=== PATIENT | female | born 1985 | race American Indian/Alaskan Native ===

== ENCOUNTER 2021-04-08 14:28 | Emergency (ER) | payer MEDICARE ==
[2021-04-08 14:36] VITALS: BP 115/55
--- NOTE | 2021-04-08 16:54 | Event Note ---
ED Screening Note Date of service: 04/08/21 Time: 16:53 ED Screening Note: 36-year-old female presents to the ER today with complaints that she is concerned for "gas poisoning". Patient states that she recently found out that she had a gas leak in her apartment. She states that she has been seen in department since the end of March 2021. She states that she had a few visitors over April 06 and also her family members came over around the same time and mention to her that they smelled gas. Patient states that she did not notice that her home smelled like gas until her family members and friends mentioned it. She states that she had a gas company come over and they did confirm a gas leak. She states that she is now having memory loss, confusion, dizziness, dull headache and chest pain. She denies any coughing, shortness of breath, wheezing, nausea vomiting fever or chills. She does admit to tobacco use but she denies any underlying medical conditions. This initial assessment/diagnostic orders/clinical plan/treatment(s) is/are subject to change based on patients health status, clinical progression and re- assessment by fellow clinical providers in the ED. Further treatment and workup at subsequent clinical providers discretion. Patient/guardian urged not to elope from the ED as their condition may be serious if not clinically assessed and managed. Initial orders include: Labs including carboxyhemoglobin and a chest x-ray
[2021-04-08 17:10] LABS: Basophils # (Auto) 0.1 K/mm3 (0.0-0.1); Basophils % (Auto) 0.5 % (0.0-1.8); Eosinophils # (Auto) 0.2 K/mm3 (0.0-0.4); Eosinophils % (Auto) 1.5 % (0.0-4.3); Hematocrit 42.1 % (30.3-42.9); Hemoglobin 14.2 gm/dl (10.1-14.3); Lymphocytes # (Auto) 2.4 K/mm3 (1.2-5.4); Mean Corpuscular HGB Conc 34 % (30-34); Mean Corpuscular Volume 93 fl (79-97); Monocytes # (Auto) 0.9 K/mm3 (0.0-0.8); Monocytes % (Auto) 8.4 % (0.0-7.3); Platelet Count 204 K/mm3 (140-440); Red Blood Count 4.51 M/mm3 (3.65-5.03); Red Cell Distribution Width 14.1 % (13.2-15.2)
[2021-04-08 17:31] LABS: Alanine Aminotransferase 12 units/L (7-56); Albumin 4.4 g/dL (3.9-5); BUN/Creatinine Ratio 14; Blood Urea Nitrogen 11 mg/dL (7-17); Calcium 9.5 mg/dL (8.4-10.2); Hemolysis Index 17
--- NOTE | 2021-04-08 18:43 | XRay Report ---
CHEST 2 VIEWS INDICATION / CLINICAL INFORMATION: chest pain. COMPARISON: None available. FINDINGS: SUPPORT DEVICES: None. HEART / MEDIASTINUM: No significant abnormality. LUNGS / PLEURA: No significant pulmonary abnormality. No significant pleural effusion. No pneumothora x. ADDITIONAL FINDINGS: No significant additional findings. IMPRESSION: 1. No acute abnormality of the chest. Signer Name: Volodymyr Luna MD Signed: 04/08/2021 6:39 PM Workstation Name: [id number]
[2021-04-08] MEDS ORDERED: ACETAMINOPHEN 500 MG TAB PO ONE (19:03)
[2021-04-08] MEDS ORDERED: diphenhydrAMINE 25 MG CAP PO ONE (19:03)
[2021-04-08] MEDS ORDERED: METOCLOPRAMIDE 10 MG TAB PO ONE (19:03)
--- NOTE | 2021-04-08 19:14 | Emergency Department Report ---
ED General Adult HPI - General Chief complaint: Medical Clearance Stated complaint: GAS POISONING Time Seen by Provider: 04/08/21 19:09 Source: patient Mode of arrival: Ambulatory Limitations: No Limitations - History of Present Illness Initial comments: Pt is a 36-year-old female presents to the ER today with complaint that she is concerned for "gas poisoning". Patient states that she recently found out that she had a gas leak in her apartment ([place]). She states that she has been seen in department since the end of March 2021. She states that she had a few visitors over April 06 and also her family members came over around the same time and mentioned to her that they smelled gas. Patient states that she did not notice that her home smelled like gas until her family members and friends mentioned it. She states that she had the gas company come over and they did confirm a gas leak. She states that she is now having memory loss, confusion, dizziness, dull headache and chest pain. She denies any coughing, shortness of breath, wheezing, nausea /vomiting fever or chills. She does admit to tobacco use but she denies any underlying medical conditions. Symptoms are rated at 45/10 at this time. Symptoms are excerbated by movement and activity. Symptoms are relieved by nothing tried. Headache is located frontal dull intermittent sharpness. There is no photophobia or decreased vision. Pt denies other history. - Related Data Allergies Allergy/AdvReac Type Severity Reaction Status Date / Time No Known Allergies Allergy Unverified 04/08/21 14:31 ED Review of Systems ROS: Stated complaint: GAS POISONING Other details as noted in HPI Constitutional: malaise Eyes: denies: eye pain, eye discharge, vision change ENT: denies: ear pain, throat pain, hearing loss, epistaxis, congestion Respiratory: denies: cough, shortness of breath, wheezing Cardiovascular: chest pain (left anterior lateral radiating to left posterior upper shoulder ). denies: palpitations, dyspnea on exertion, orthopnea, syncope Endocrine: no symptoms reported Gastrointestinal: denies: abdominal pain, nausea, vomiting, diarrhea, melena Genitourinary: denies: urgency, dysuria, frequency, hematuria, discharge Musculoskeletal: other (left posterior shoulder pain ) Skin: denies: rash, lesions Neurological: headache, vertigo. denies: weakness, numbness, paresthesias, confusion Psychiatric: anxiety Hematological/Lymphatic: denies: easy bleeding, easy bruising ED Past Medical Hx - Past Medical History Previous Medical History?: No - Surgical History Past Surgical History?: No - Social History Smoking Status: Current Every Day Smoker Substance Use Type: None ED Physical Exam - General Limitations: No Limitations General appearance: alert, in no apparent distress - Head Head exam: Present: normocephalic, normal inspection - Eye Eye exam: Present: PERRL, EOMI. Absent: conjunctival injection, nystagmus Pupils: Present: normal accommodation - ENT ENT exam: Present: normal orophraynx, mucous membranes moist, normal external ear exam - Expanded ENT Exam Expanded Throat exam: Positive: normal inspection, other (uvula midline no exudate no lesions no erythema no stridor or wheezing ). Negative: tonsillar erythema, tonsillomegaly, tonsillar exudate - Neck Neck exam: Present: normal inspection, full ROM. Absent: tenderness, lymphad enopathy, thyromegaly - Respiratory Respiratory exam: Present: normal lung sounds bilaterally, chest wall tenderness (left anterior lateral chest wall tenderness to deep palpation, no crepitus, no step off no swelling ). Absent: respiratory distress, wheezes, stridor, prolonged expiratory - Cardiovascular Cardiovascular Exam: Present: regular rate, normal rhythm, normal heart sounds. Absent: systolic murmur, diastolic murmur, rubs, gallop, clicks, JVD, S3, S4 - GI/Abdominal GI/Abdominal exam: Present: soft. Absent: distended, tenderness, bruit, hernia - Rectal Rectal exam: Present: deferred - Extremities Exam Extremities exam: Present: normal inspection, full ROM, normal capillary refill. Absent: tenderness - Back Exam Back exam: Present: normal inspection, full ROM. Absent: CVA tenderness (R), CVA tenderness (L), rash noted - Neurological Exam Neurological exam: Present: alert, oriented X3, CN II-XII intact, normal gait, reflexes normal. Absent: motor sensory deficit - Expanded Neurological Exam Expanded Patient oriented to: Present: person, place, time Speech: Present: fluid speech Cranial nerves: EOM's Intact: Normal Motor strength exam: RUE: 5, LUE: 5, RLE: 5, LLE: 5 Best Eye Response ([place]): (4) open spontaneously Best Motor Response ([place]): (6) obeys commands Best Verbal Response (Gt): (5) oriented Gt Total: 15 - Psychiatric Psychiatric exam: Present: normal affect, normal mood - Skin Skin exam: Present: warm, dry, intact, normal color. 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 ED Medical Decision Making - Lab Data Result diagrams: 04/08/21 16:56 04/08/21 16:56 Temp Pulse Resp BP Pulse Ox 98.2 F 88 18 115/55 99 04/08/21 14:33 04/08/21 14:33 04/08/21 14:33 04/08/21 14:33 04/08/21 14:33 Labs 04/08/21 04/08/21 04/08/21 16:56 16:56 16:56 WBC 11.0 RBC 4.51 Hgb 14.2 Hct 42.1 MCV 93 MCH 32 MCHC 34 RDW 14.1 Plt Count 204 Lymph % (Auto) 22.0 [place] % (Auto) 8.4 H Eos % (Auto) 1.5 Baso % (Auto) 0.5 Lymph # (Auto) 2.4 [place] # (Auto) 0.9 H Eos # (Auto) 0.2 Baso # (Auto) 0.1 Seg Neutrophils % 67.6 Seg Neutrophils # 7.4 Sodium 135 L Potassium 4.4 Chloride 101.0 Carbon Dioxide 21 L Anion Gap 17 BUN 11 Creatinine 0.8 Estimated GFR > 60 BUN/Creatinine Ratio 14 Glucose 75 Calcium 9.5 Total Bilirubin 0.20 AST 15 ALT 12 Alkaline Phosphatase 77 Total Protein 8.1 Albumin 4.4 Albumin/Globulin Ratio 1.2 HCG, Qual Negative - Radiology Data Radiology results: report reviewed, image reviewed INDICATION / CLINICAL INFORMATION: chest pain. COMPARISON: None available. FINDINGS: SUPPORT DEVICES: None. HEART / MEDIASTINUM: No significant abnormality. LUNGS / PLEURA: No significant pulmonary abnormality. No significant pleural effusion. No pneumothorax. ADDITIONAL FINDINGS: No significant additional findings. IMPRESSION: 1. No acute abnormality of the chest. Signer Name: Volodymyr Luna MD Signed: 04/08/2021 6:39 PM Workstation Name: [id number] Transcribed By: [place] Dictated By: Volodymyr Luna MD Electronically Authenticated By: Volodymyr Luna MD Signed Date/Time: 04/08/211838 DD/ 36 TD/TT: - Medical Decision Making Patient now advises that she cannot wait for, hyper carboxyhemoglobin or EKG as she has to leave. However physical exam is normal, lung sounds are clear throughout patient is alert oriented x3 ambulatory with steady gait patient has no acute distress. Patient will follow with primary care doctor in 2 to 3 days. Patient will return to emergency department should symptoms worsen. Critical care attestation.: If time is entered above; I have spent that time in minutes in the direct care of this critically ill patient, excluding procedure time. ED Disposition Clinical Impression: Exposure to natural gas Disposition: DC-01 TO HOME OR SELFCARE Is pt being admited?: No Does the pt Need Aspirin: No Condition: Stable Instructions: Carbon Monoxide Poisoning, [id number], Carboxyhemoglobin Test Additional Instructions: Take [id number] Tylenol as discussed and agreed as needed for headache, return to emergency department should symptoms arrival or worsen. Follow-up with your primary care doctor in 2 to 3 days. Referrals: HIRAM DE LA PAZ MD [Staff Physician] - 3-5 Days Forms: Work/School Release Form(ED) Time of Disposition: 20:34
== END 2021-04-08 20:45 | disposition home or self-care (01) ==
LOC: ED 14:28
DX: T59.91XA Toxic effect of unspecified gases, fumes and vapors, accidental (unintentional), initial encounter (principal); F17.200 Nicotine dependence, unspecified, uncomplicated; Y35 Legal intervention; Y93.89 Activity, other specified; Y92.039 Unspecified place in apartment as the place of occurrence of the external cause; Y99.8 Other external cause status
CPT/HCPCS: 71046; 80053; 84703; 85025; 99284

== ENCOUNTER 2021-05-28 16:12 | Emergency (ER) | payer MEDICARE ==
[2021-05-28 16:29] VITALS: BP 111/52
--- NOTE | 2021-05-28 17:17 | Emergency Department Report ---
ED General Adult HPI - General Chief complaint: Vaginal Bleeding Stated complaint: POSS MISCARRIAGE Time Seen by Provider: 05/28/21 16:37 Source: patient Mode of arrival: Ambulatory Limitations: No Limitations - History of Present Illness Initial comments: 36-year-old -[place] female patient presents with complaints of vaginal bleeding. Patient states that she took a test today and it was positive. Her last menstrual cycle was 04/19/2021. She admits to mild lower abdominal cramping that she reports feels like her normal menstrual cramps. Patient denies any dysuria/hematuria/urinary frequency, nausea/vomiting, stool changes, or fever/chills/sweats. She rates her pain as a 3/10 in severity. She has not taken any OTC medications for her symptoms. 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 Severity scale (0 -10): 4 - Related Data Previous Rx's Medication Instructions Recorded Last Taken Type Amoxicillin/Potassium Clav 1 each PO BID 5 Days #10 tablet 05/28/21 Unknown Rx [Augmentin 875-125 Tablet] Allergies Allergy/AdvReac Type Severity Reaction Status Date / Time No Known Allergies Allergy Unverified 04/08/21 14:31 ED Review of Systems ROS: Stated complaint: POSS MISCARRIAGE Other details as noted in HPI Constitutional: denies: chills, fever, malaise Gastrointestinal: as per HPI. denies: abdominal pain Genitourinary: denies: urgency, dysuria, frequency, hematuria, discharge Neurological: denies: headache ED Past Medical Hx - Social History Smoking Status: Current Every Day Smoker Substance Use Type: None - Medications Home Medications: Home Medications Medication Instructions Recorded Confirmed Last Taken Type Amoxicillin/Potassium Clav 1 each PO BID 5 Days #10 tablet 05/28/21 Unknown Rx [Augmentin 875-125 Tablet] ED Physical Exam - General Limitations: No Limitations General appearance: alert, in no apparent distress - Head Head exam: Present: atraumatic, normocephalic - Respiratory Respiratory exam: Absent: respiratory distress - Cardiovascular Cardiovascular Exam: Present: regular rate - GI/Abdominal GI/Abdominal exam: Present: soft, normal bowel sounds. Absent: distended, tenderness, guarding, rebound, rigid - Neurological Exam Neurological exam: Present: alert, oriented X3 - Psychiatric Psychiatric exam: Present: normal affect, normal mood - Skin Skin exam: Present: warm, dry, intact, normal color. Absent: rash ED Course Vital Signs 05/28/21 16:28 Temperature 98.1 F Pulse Rate 79 Respiratory 16 Rate Blood Pressure 111/52 [Right] O2 Sat by Pulse 99 Oximetry ED Medical Decision Making - Lab Data Result diagrams: 05/28/21 18:26 - Radiology Data Radiology results: report reviewed ULTRASOUND OBSTETRIC INDICATION / CLINICAL INFORMATION: bleeding in . Serum hCG level = 131.0 Clinical Gestational Age (GA) in weeks, days: Not calculated. LMP = 04/15/21 TECHNIQUE: Transabdominal and Transvaginal. COMPARISON: None available. FINDINGS: GESTATIONAL SAC: No intrauterine gestational sac. YOLK SAC: None visualized. EMBRYO/FETUS: None visualized. ADNEXA: No significant abnormality. FREE FLUID: None. ADDITIONAL FINDINGS: None. IMPRESSION: 1. No intrauterine . - Medical Decision Making 36-year-old -[place] female patient presents with complaints of vaginal bleeding. Patient states that she took a test today and it was positive. Her last menstrual cycle was 04/19/2021. She admits to mild lower abdominal cramping that she reports feels like her normal menstrual cramps. Patient denies any dysuria/hematuria/urinary frequency, nausea/vomiting, stool changes, or fever/chills/sweats. She rates her pain as a 3/10 in severity. She has not taken any OTC medications for her symptoms. 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 No abdominal tenderness to palpation noted on exam. Patient declines CBC and ABO/Rh testing. Discussed importance of ABO/Rh and possible risk associated with being Rh- with a Rh+ fetus-patient states understanding and continues to decline testing. Beta-hCG is low at 131. Ultrasound is negative for any IUP or ectopic at this time. Early versus miscarriage. UA shows pyuria. Discussed findings in detail with patient. Augmentin given for UTI. Patient is to return to the ED in 3 days for repeat beta hCG level or follow-up with her WATER SERVICE SUPERVISOR. She is otherwise well-appearing, her vitals are normal, she is stable for discharge home. Strict return precautions discussed in detail patient verbalized understanding. Critical care attestation.: If time is entered above; I have spent that time in minutes in the direct care of this critically ill patient, excluding procedure time. ED Disposition Clinical Impression: Vaginal bleeding in , Threatened , UTI (urinary tract infection) Disposition: HOME / SELF CARE / HOMELESS Is pt being admited?: No Condition: Stable Instructions: and Urinary Tract Infection, Threatened Miscarriage, [id number] Prescriptions: Amoxicillin/Potassium Clav [Augmentin 875-125 Tablet] 1 each PO BID 5 Days #10 tablet Referrals: [facility] [Provider Group] - 2-3 Days (Recheck hormone and follow up )
[2021-05-28 18:51] LABS: Bilirubin,Urine NEG (Negative); Blood,Urine LG (Negative); Color,Urine Yellow (Yellow); Mucus,Urine FEW /HPF; Urobilinogen,Urine < 2.0 mg/dL (<2.0)
[2021-05-28 21:59] LABS: Blood Urea Nitrogen 10 mg/dL (7-17); Calcium 9.8 mg/dL (8.4-10.2); Hemolysis Index 1
[2021-05-28 22:01] LABS: BUN/Creatinine Ratio 14
--- NOTE | 2021-05-28 22:02 | Ultrasound Report ---
ULTRASOUND OBSTETRIC INDICATION / CLINICAL INFORMATION: bleeding in . Serum hCG level = 131.0 Clinical Gestational Age (GA) in weeks, days: Not calculated. LMP = 04/15/21 TECHNIQUE: Transabdominal and Transvaginal. COMPARISON: None available. FINDINGS: GESTATIONAL SAC: No intrauterine gestational sac. YOLK SAC: None visualized. EMBRYO/FETUS: None visualized. ADNEXA: No significant abnormality. FREE FLUID: None. ADDITIONAL FINDINGS: None. IMPRESSION: 1. No intrauterine . Signer Name: Keren Patel MD Signed: 05/28/2021 9:57 PM Workstation Name: [id number]
== END 2021-05-28 22:00 | disposition home or self-care (01) ==
LOC: ED 16:12
DX: O20.9 Hemorrhage in early pregnancy, unspecified (principal); O20.0 Threatened abortion; O23.91 Unspecified genitourinary tract infection in pregnancy, first trimester; Z3A.01 Less than 8 weeks gestation of pregnancy; F17.200 Nicotine dependence, unspecified, uncomplicated
CPT/HCPCS: 36415; 76801; 76817; 80048; 81001; 84702; 87086; 99283

== ENCOUNTER 2021-07-18 06:04 | Emergency (ER) | payer MEDICARE ==
[2021-07-18 08:39] LABS: Basophils # (Auto) 0.1 K/mm3 (0.0-0.1); Eosinophils # (Auto) 0.1 K/mm3 (0.0-0.4); Eosinophils % (Auto) 0.5 % (0.0-4.3); Hemoglobin 14.3 gm/dl (10.1-14.3); Lymphocytes # (Auto) 2.1 K/mm3 (1.2-5.4); Lymphocytes % (Auto) 16.1 % (13.4-35.0); Mean Corpuscular HGB Conc 33 % (30-34); Mean Corpuscular Volume 90 fl (79-97); Monocytes # (Auto) 0.7 K/mm3 (0.0-0.8); Monocytes % (Auto) 5.4 % (0.0-7.3); Platelet Count 320 K/mm3 (140-440); Red Blood Count 4.77 M/mm3 (3.65-5.03); Red Cell Distribution Width 12.8 % (13.2-15.2)
[2021-07-18 08:56] LABS: Amphetamine Screen,Urine Negative; Benzodiazepines Screen,Urine Negative; Cannabinoid Screen,Urine Negative; Cocaine Screen,Urine Negative; Methadone Screen,Urine Negative; Opiate Screen,Urine Negative
[2021-07-18 08:57] LABS: Bacteria,Urine 1+ /HPF (Negative); Bilirubin,Urine NEG (Negative); Blood,Urine NEG (Negative); Color,Urine Amber (Yellow); Mucus,Urine 2+ /HPF; Urobilinogen,Urine < 2.0 mg/dL (<2.0)
[2021-07-18 09:01] LABS: BUN/Creatinine Ratio 10; Blood Urea Nitrogen 8 mg/dL (7-17); Calcium 9.7 mg/dL (8.4-10.2); Hemolysis Index 4
--- NOTE | 2021-07-18 09:42 | Emergency Department Report ---
ED Psych HPI - General Chief Complaint: Psych Stated Complaint: MH Time Seen by Provider: 07/18/21 08:11 Source: patient Mode of arrival: Ambulatory Limitations: No Limitations - History of Present Illness Initial Comments: 36-year-old female the past medical history of schizophrenia presents to the hospital complaining of worsening auditory visual hallucinations. Patient accuses her family members of practicing witchcraft. She states every time thi ngs are going right in her life they ruin it with witchcraft and sorcery. Patient is compliant with her daily p.o. Invega dose with last dose yesterday. She states she has been having worsening hallucinations for the last 4 to 5 days was interfere with her ability to run her Responsys. Patient does not endorse suicidal or homicidal ideation at this time. No physical complaints reported. - Related Data Allergies Allergy/AdvReac Type Severity Reaction Status Date / Time No Known Allergies Allergy Verified 07/18/21 09:44 ED Review of Systems ROS: Stated complaint: MH Other details as noted in HPI Comment: All other systems reviewed and negative ED Past Medical Hx - Past Medical History Previous Medical History?: Yes Hx Psychiatric Treatment: Yes (schizoeffective) - Surgical History Past Surgical History?: No - Social History Smoking Status: Never Smoker Substance Use Type: None ED Physical Exam - General Limitations: No Limitations - Other Other exam information: General: No acute distress Head: Atraumatic Eyes: normal appearance ENT: Moist mucous membranes Neck: Normal appearance, no midline tenderness Chest: Clear to auscultation bilaterally CV: Regular rate and rhythm Abdomen: Soft, normal bowel sounds, nontender, nondistended, no rebound or guarding Back: Normal inspection Extremity: Normal inspection, full range of motion Neuro: Alert O x 3, no facial asymmetry, speech clear, no gross motor sensory deficit Psych: Appropriate behavior Skin: No rash ED Course Vital Signs 07/18/21 07/18/21 07/18/21 07:30 08:07 08:13 Temperature 98 F 98 F Pulse Rate 106 H 89 Respiratory 18 18 Rate Blood Pressure 128/88 124/64 [Right] O2 Sat by Pulse 99 98 98 Oximetry ED Medical Decision Making - Lab Data Result diagrams: 07/18/21 08:18 07/18/21 08:18 Lab Results 07/18/21 07/18/21 07/18/21 Range/Units 08:13 08:13 08:18 WBC 13.0 H (4.5-11.0) K/mm3 RBC 4.77 (3.65-5.03) M/mm3 Hgb 14.3 (10.1-14.3) gm/dl Hct 43.0 H (30.3-42.9) % MCV 90 (79-97) fl MCH 30 (28-32) pg MCHC 33 (30-34) % RDW 12.8 L (13.2-15.2) % Plt Count 320 (140-440) K/mm3 Lymph % (Auto) 16.1 (13.4-35.0) % [place] % (Auto) 5.4 (0.0-7.3) % Eos % (Auto) 0.5 (0.0-4.3) % Baso % (Auto) 1.0 (0.0-1.8) % Lymph # (Auto) 2.1 (1.2-5.4) K/mm3 [place] # (Auto) 0.7 (0.0-0.8) K/mm3 Eos # (Auto) 0.1 (0.0-0.4) K/mm3 Baso # (Auto) 0.1 (0.0-0.1) K/mm3 Seg Neutrophils % 77.0 H (40.0-70.0) % Seg Neutrophils # 10.0 H (1.8-7.7) K/mm3 Sodium (137-145) mmol/L Potassium (3.6-5.0) mmol/L Chloride (98-107) mmol/L Carbon Dioxide (22-30) mmol/L Anion Gap mmol/L BUN (7-17) mg/dL Creatinine (0.6-1.2) mg/dL Estimated GFR ml/min BUN/Creatinine Ratio % Glucose (65-100) mg/dL Calcium (8.4-10.2) mg/dL HCG, Qual (Negative) Urine Color [place] (Yellow) Urine Turbidity Cloudy (Clear) Urine pH 5.0 (5.0-7.0) Ur Specific [place] 1.026 (1.003-1.030) Urine Protein 100 mg/dl (Negative) mg/dL Urine Glucose (UA) Neg (Negative) mg/dL Urine Ketones Neg (Negative) mg/dL Urine Blood Neg (Negative) Urine Nitrite Neg (Negative) Urine Bilirubin Neg (Negative) Urine Urobilinogen < 2.0 (<2.0) mg/dL Ur Leukocyte Esterase Lg (Negative) Urine WBC (Auto) 55.0 H (0.0-6.0) /HPF Urine RBC (Auto) 10.0 (0.0-6.0) /HPF U Epithel Cells (Auto) 79.0 H (0-13.0) /HPF Urine Bacteria (Auto) 1+ (Negative) /HPF Urine Mucus 2+ /HPF Salicylates (2.8-20.0) mg/dL Urine Opiates Screen Negative Urine Methadone Screen Negative Acetaminophen (10.0-30.0) ug/mL Ur Barbiturates Screen Negative Ur Phencyclidine Scrn Negative Ur Amphetamines Screen Negative U Benzodiazepines Scrn Negative Urine Cocaine Screen Negative U Marijuana (THC) Screen Negative Drugs of Abuse Note Disclamer Plasma/Serum Alcohol (0-0.07) % Coronavirus (PCR) (Negative) 07/18/21 07/18/21 07/18/21 Range/Units 08:18 08:18 08:18 WBC (4.5-11.0) K/mm3 RBC (3.65-5.03) M/mm3 Hgb (10.1-14.3) gm/dl Hct (30.3-42.9) % MCV (79-97) fl MCH (28-32) pg MCHC (30-34) % RDW (13.2-15.2) % Plt Count (140-440) K/mm3 Lymph % (Auto) (13.4-35.0) % [place] % (Auto) (0.0-7.3) % Eos % (Auto) (0.0-4.3) % Baso % (Auto) (0.0-1.8) % Lymph # (Auto) (1.2-5.4) K/mm3 [place] # (Auto) (0.0-0.8) K/mm3 Eos # (Auto) (0.0-0.4) K/mm3 Baso # (Auto) (0.0-0.1) K/mm3 Seg Neutrophils % (40.0-70.0) % Seg Neutrophils # (1.8-7.7) K/mm3 Sodium 137 (137-145) mmol/L Potassium 4.1 (3.6-5.0) mmol/L Chloride 102.1 (98-107) mmol/L Carbon Dioxide 18 L (22-30) mmol/L Anion Gap 21 mmol/L BUN 8 (7-17) mg/dL Creatinine 0.8 (0.6-1.2) mg/dL Estimated GFR > 60 ml/min BUN/Creatinine Ratio 10 % Glucose 130 H (65-100) mg/dL Calcium 9.7 (8.4-10.2) mg/dL HCG, Qual (Negative) Urine Color (Yellow) Urine Turbidity (Clear) Urine pH (5.0-7.0) Ur Specific [place] (1.003-1.030) Urine Protein (Negative) mg/dL Urine Glucose (UA) (Negative) mg/dL Urine Ketones (Negative) mg/dL Urine Blood (Negative) Urine Nitrite (Negative) Urine Bilirubin (Negative) Urine Urobilinogen (<2.0) mg/dL Ur Leukocyte Esterase (Negative) Urine WBC (Auto) (0.0-6.0) /HPF Urine RBC (Auto) (0.0-6.0) /HPF U Epithel Cells (Auto) (0-13.0) /HPF Urine Bacteria (Auto) (Negative) /HPF Urine Mucus /HPF Salicylates < 0.3 L (2.8-20.0) mg/dL Urine Opiates Screen Urine Methadone Screen Acetaminophen 5.0 L (10.0-30.0) ug/mL Ur Barbiturates Screen Ur Phencyclidine Scrn Ur Amphetamines Screen U Benzodiazepines Scrn Urine Cocaine Screen U Marijuana (THC) Screen Drugs of Abuse Note Plasma/Serum Alcohol (0-0.07) % Coronavirus (PCR) (Negative) 07/18/21 07/18/21 07/18/21 Range/Units 08:18 08:18 09:11 WBC (4.5-11.0) K/mm3 RBC (3.65-5.03) M/mm3 Hgb (10.1-14.3) gm/dl Hct (30.3-42.9) % MCV (79-97) fl MCH (28-32) pg MCHC (30-34) % RDW (13.2-15.2) % Plt Count (140-440) K/mm3 Lymph % (Auto) (13.4-35.0) % [place] % (Auto) (0.0-7.3) % Eos % (Auto) (0.0-4.3) % Baso % (Auto) (0.0-1.8) % Lymph # (Auto) (1.2-5.4) K/mm3 [place] # (Auto) (0.0-0.8) K/mm3 Eos # (Auto) (0.0-0.4) K/mm3 Baso # (Auto) (0.0-0.1) K/mm3 Seg Neutrophils % (40.0-70.0) % Seg Neutrophils # (1.8-7.7) K/mm3 Sodium (137-145) mmol/L Potassium (3.6-5.0) mmol/L Chloride (98-107) mmol/L Carbon Dioxide (22-30) mmol/L Anion Gap mmol/L BUN (7-17) mg/dL Creatinine (0.6-1.2) mg/dL Estimated GFR ml/min BUN/Creatinine Ratio % Glucose (65-100) mg/dL Calcium (8.4-10.2) mg/dL HCG, Qual Negative (Negative) Urine Color (Yellow) Urine Turbidity (Clear) Urine pH (5.0-7.0) Ur Specific [place] (1.003-1.030) Urine Protein (Negative) mg/dL Urine Glucose (UA) (Negative) mg/dL Urine Ketones (Negative) mg/dL Urine Blood (Negative) Urine Nitrite (Negative) Urine Bilirubin (Negative) Urine Urobilinogen (<2.0) mg/dL Ur Leukocyte Esterase (Negative) Urine WBC (Auto) (0.0-6.0) /HPF Urine RBC (Auto) (0.0-6.0) /HPF U Epithel Cells (Auto) (0-13.0) /HPF Urine Bacteria (Auto) (Negative) /HPF Urine Mucus /HPF Salicylates (2.8-20.0) mg/dL Urine Opiates Screen Urine Methadone Screen Acetaminophen (10.0-30.0) ug/mL Ur Barbiturates Screen Ur Phencyclidine Scrn Ur Amphetamines Screen U Benzodiazepines Scrn Urine Cocaine Screen U Marijuana (THC) Screen Drugs of Abuse Note Plasma/Serum Alcohol < 0.01 (0-0.07) % Coronavirus (PCR) Negative (Negative) - Medical Decision Making 36-year-old female presents to the hospital with psychosis and paranoia despite stated compliance with her antipsychotic medication. 1013 has been signed. Patient awaiting mental health evaluation and is medically cleared. Antibiotics started for UTI although given high number of epithelial cells cannot rule out contaminated sample Critical Care Time: No Critical care attestation.: If time is entered above; I have spent that time in minutes in the direct care of this critically ill patient, excluding procedure time. ED Disposition Clinical Impression: Acute psychosis, Schizophrenia, Paranoia, UTI (urinary tract infection), Med ical clearance for psychiatric admission Disposition: [address] [place] [address] Is pt being admited?: No Condition: Stable Time of Disposition: 14:59
--- NOTE | 2021-07-18 10:37 | Consultation ---
History of Present Illness - Reason for Consult Consult date: 07/18/21 Reason for consult: mental health eval - History of Present Psychiatric Illness ED Note: 36-year-old female the past medical history of schizophrenia presents to the hospital complaining of worsening auditory visual hallucinations. Patient accuses her family members of practicing witchcraft. She states every time things are going right in her life they ruin it with witchcraft and sorcery. Patient is compliant with her daily p.o. Invega dose with last dose yesterday. She states she has been having worsening hallucinations for the last 4 to 5 days was interfere with her ability to run her [employer]. Patient does not endorse suicidal or homicidal ideation at this time. No physical complaints reported. Sheila Cloud is a 36 year old female with history of Schizophrenia. The patient is calm, thought blocking and guarded. She reports being compliant with psychotropic medication invega but unable to state dosage; she was unable to t ell who her psychiatrist is or when she last saw them. The patient endorses auditory and visual hallucinations and when asked about details she states "I can't say because it makes it worse." PAST PSYCHIATRIC HISTORY Diagnoses: Schizophrenia Suicide attempts or Self-harm behavior:Denies Prior psychiatric hospitalizations: Denies Substance Abuse history: Denies Previous psychiatric medications tried:Invega Outpatient treatment: Unknown PAST MEDICAL HISTORY: None reported Family Psychiatric History: None reported or documented SOCIAL HISTORY Marital Status: Single Living Arrangements: lives alone Employment Status: [employer] Access to guns/weapons: Denies Education: unknown History of Abuse: Denies Legal History: unknown EVIEW OF SYSTEMS Constitutional: Negative for weight loss ENT: Negative for stridor Respiratory: Negative for cough or hemoptysis All other systems reviewed and are negative MENTAL STATUS EXAMINATION General Appearance and Behavior: Age appropriate, wearing appropriate clothes, good eye contact, anxious and cooperative Mood: Guarded Affect and affective range: congruent with stated mood Thought Process: thought blocking Thought Content: Grandiosity Speech: Normal volume, Regular rate and rhythm Suicidal Ideation: Denies Homicidal Ideation: Denies Hallucinations: Auditory/ Visual Delusions: - Impulse Control: normal Insight and Judgment: Limited Memory/Cognition: Limited Attention: Normal Orientation: Alert, oriented Assessment (1) Schizophrenia (2) (3) Plan 1013 Start Zyprexa 5mg po BID Sitter: Defer to primary Medical: Per primary Disposition: Recommend acute inpatient psychiatric treatment Will follow Case staffed with Dr. Summers Medications and Allergies Medications and Allergies Allergies Allergy/AdvReac Type Severity Reaction Status Date / Time No Known Allergies Allergy Verified 07/18/21 09:44 Home Medications Medication Instructions Recorded Confirmed Last Taken Type Amoxicillin/Potassium Clav 1 each PO BID 5 Days #10 tablet 05/28/21 Unknown Rx [Augmentin 875-125 Tablet] Active Meds: Active Medications Nitrofurantoin Macrocrystals (Nitrofurantoin Monohyd/M-Cryst 100 Mg Cap) 100 mg PO BID NICOLETTE Stop: 07/22/21 22:01 Mental Status Exam - Vital signs Last Vital Signs Temp 98 F 07/18/21 08:07 Pulse 89 07/18/21 08:07 Resp 18 07/18/21 08:07 BP 124/64 07/18/21 08:07 Pulse Ox 98 07/18/21 08:13 Results Result Diagrams: 07/18/21 08:18 07/18/21 08:18 Abnormal lab results 07/18/21 07/18/21 07/18/21 Range/Units 08:13 08:18 08:18 WBC 13.0 H (4.5-11.0) K/mm3 Hct 43.0 H (30.3-42.9) % RDW 12.8 L (13.2-15.2) % Seg Neutrophils % 77.0 H (40.0-70.0) % Seg Neutrophils # 10.0 H (1.8-7.7) K/mm3 Carbon Dioxide 18 L (22-30) mmol/L Glucose 130 H (65-100) mg/dL Urine WBC (Auto) 55.0 H (0.0-6.0) /HPF U Epithel Cells (Auto) 79.0 H (0-13.0) /HPF Salicylates (2.8-20.0) mg/dL Acetaminophen (10.0-30.0) ug/mL 07/18/21 07/18/21 Range/Units 08:18 08:18 WBC (4.5-11.0) K/mm3 Hct (30.3-42.9) % RDW (13.2-15.2) % Seg Neutrophils % (40.0-70.0) % Seg Neutrophils # (1.8-7.7) K/mm3 Carbon Dioxide (22-30) mmol/L Glucose (65-100) mg/dL Urine WBC (Auto) (0.0-6.0) /HPF U Epithel Cells (Auto) (0-13.0) /HPF Salicylates < 0.3 L (2.8-20.0) mg/dL Acetaminophen 5.0 L (10.0-30.0) ug/mL All other labs normal.
[2021-07-18] MEDS: NITROFURANTOIN MONOHYD/M-CRYST 100 MG CAP PO SCH ×2 (10:39→21:41)
[2021-07-18 21:46] VITALS: BP 125/84
== END 2021-07-18 21:46 ==
LOC: ED 06:04
DX: F20.9 Schizophrenia, unspecified (principal); Z20.822 Contact with and (suspected) exposure to COVID-19; N39.0 Urinary tract infection, site not specified
CPT/HCPCS: 36415; 80048; 80307; 81001; 84703; 85025; 87086; 99285; U0003; 80320; G0480